=== PATIENT | female | born 1960 | race Two or more races ===

== ENCOUNTER 2024-09-08 16:34 | Inpatient (IN) | payer OTHER ==
[~2024-09-08] VITALS: Ht 167.6 cm; Wt 67.2 kg
[2024-09-08] MEDS: HYDROcodone-ACET 10/325MG TAB PO ONE (17:15)
--- NOTE | 2024-09-08 17:50 | DVH ---
EXAM: CT HEAD WITHOUT CONTRAST INDICATION: SANTOS TECHNIQUE: CT of the head without intravenous contrast. Radiation dose : Head: CT Dose: CTDI volume is 53 mGy. Dose-length product is 937 mGy*cm The dose indicators for CT are the volume computed tomography (CT) dose index (CTDIvol) and the dose length product (DLP), and are measured in units of mGy and mGy-cm, respectively. These indicators are not patient dose, but values generated from the CT scanner acquisition factors. The report includes radiation exposure data for exposures received during this examination. COMPARISON: None FINDINGS: There is no evidence of acute intracranial hemorrhage, extra-axial collection, mass effect, midline s hift, herniation or hydrocephalus. The ventricles, sulci and cisterns are age appropriate. The kendall-white differentiation is intact. Patchy periventricular and subcortical white matter hypoattenuation is nonspecific but may be related to small vessel ischemic disease. The visualized paranasal sinuses and mastoid air cells are clear. The surrounding soft tissues and osseous structures are unremarkable. IMPRESSION: 1. No acute intracranial abnormality. Radiation optimization: All CT scans at this facility use at least one of these dose optimization shi hniques: Automated exposure control mA and/or kV adjustment per patient size (includes targeted exams where dose is matched to clinical indication) or iterative reconstruction. HS:Y
--- NOTE | 2024-09-08 18:28 | ECG ---
[facility] Test Date: 2024-09-08 Test Time: 16:51:14 Pat Name: VICKIE EATON Department: ER Room: 0285T Gender: F Regional Hr Manager: ADÁN : 1960 Requested By: CARLINE PAULINO Order Number: [id number] Reading MD: Phil Bustos Measurements Intervals [place] Rate: 50 P: 83 ID: [id number] QRS: 110 QRSD: 102 T: 97 QT: 575 QTc: 525 Interpretive Statements Sinus rhythm Right atrial enlargement Right axis deviation Consider left ventricular hypertrophy Abnormal T, consider ischemia, lateral leads Prolonged QT interval Baseline wander in lead(s) V6 Electronically Signed On 09-10-2024 12:46:31 PST by Phil Bustos Please click the below link to view image of tracing.
[2024-09-08 18:56] LABS: Basophils # (auto) 0 10 ^3/uL (0-0.2); Eosinophils # (auto) 0 10 ^3/uL (0-0.8); Eosinophils % (auto) 0.9 % (0.0-7.0); Hematocrit 38.7 % (36.0-46.0); Hemoglobin 12.7 g/dL (12.2-16.2); Lymphocytes # (auto) 0.7 10 ^3/uL (0.4-5.4); Lymphocytes % (auto) 17.3 % (10.0-50.0); Mean Corpuscular Hemoglobin 29.2 pg (28.0-32.0); Mean Corpuscular Hgb Conc. 32.9 g/dL (32.0-36.0); Mean Corpuscular Volume 88.8 fL (80.0-100.0); Monocytes # (auto) 0.6 10 ^3/uL (0-1.3); Monocytes % (auto) 14.9 % (0.0-12.0); Neutrophils # (auto) 2.6 10 ^3/uL (1.6-8.6); Neutrophils % (auto) 65.9 % (37.0-80.0); Nucleated Red Blood Cells % 0.3 %; Platelet Count (auto) 160 10^3/uL (140-450); Red Blood Cells 4.36 10^6/uL (4.0-5.20); White Blood Cell 3.9 10^3/uL (4.4-10.8)
[2024-09-08 19:15] LABS: Alanine Aminotransferase 32 U/L (7-40); Albumin 4.4 g/dL (3.2-4.8); Anion Gap 9 (5-15); Aspartate Aminotransferase 34 U/L (13-40); Calcium 8.8 mg/dL (8.7-10.4); Glucose 88 mg/dL (74-106); Potassium 4.4 mmol/L (3.5-5.1); Sodium 137 mmol/L (136-145)
[2024-09-08 19:16] LABS: Bilirubin, Total 0.5 mg/dL (0.2-1.0)
[2024-09-08 19:18] LABS: Alkaline Phosphatase 144 U/L (46-116); Blood Urea Nitrogen 26 mg/dL (9-23); Carbon Dioxide 33 mmol/L (20-31); Chloride 95 mmol/L (98-107); Total Protein 8.3 g/dL (5.7-8.2)
[2024-09-08 19:35] VITALS: PULSE 49; O2SAT 96
--- NOTE | 2024-09-08 21:10 | ED.PDOC ---
History of Present Illness HPI Comments 64-year-old female who comes in with chief complaint of elevated blood pressure and generalized weakness. The patient gets dialyzed on Friday, Friday and Friday. The patient's heart rate has been somewhat decreased and so 911 was called but the patient was transported to our facility by her daughter. With symptoms of elevated blood pressure has been going on for approximately one week. She states that at approximately 3:00 a.m. she started to feel somewhat weak as well as a headache. She denies any fever or chills. Chief Complaint: Headache Time Seen by MD: 16:39 Reviewed Notes: Nurses Notes, Medications, Allergies (Allergies listed above) Allergies: Coded Allergies: Acetaminophen (Verified Allergy, Unknown, 09/08/24) Hydrocodone (Verified Allergy, Unknown, 09/08/24) Morphine (Verified Allergy, Unknown, 09/08/24) Uncoded Allergies: VICODEN (Allergy, Unknown, 09/08/24) Information Source: Patient, Relative (Child) Mode of Arrival: Ambulatory Severity: Moderate Timing: Days Duration: Since onset Prehospital treatment: None Associated signs and symptoms Complaining of the headache as well as generalized weakness and bradycardia Past Medical History PAST MEDICAL HISTORY: AFIB, ESRD, HTN, Thyroid Past Medical History (Other): Hepatitis-C Surgical History: Hysterectomy Surgical History (Other): Left arm dialysis fistula, gastric sleeve, cardiac valve surgery [employer] History: No Pertinent [employer]IVER History Family History Family History: Family hx of Cancer Social History Smoker: Non-Smoker Alcohol: Denies ETOH Use Drugs: Denies Drug Use Lives In: Home Constitutional: reports: weakness; denies: chills, diaphoresis, fatigue, fever, malaise, sweats, others EENTM: denies: blurred vision, double vision, ear bleeding, ear discharge, ear drainage, ear pain, ear ringing, eye pain, eye redness, hearing loss, mouth pain, mouth swelling, nasal discharge, nose bleeding, nose congestion, nose pain, photophobia, tearing, throat pain, throat swelling, voice changes, others Respiratory: denies: cough, hemoptysis, orthopnea, SOB at rest, shortness of breath, SOB with excertion, stridor, wheezing, others Cardiovascular: denies: chest pain, dizzy spells, diaphoresis, Dyspnea on exertion, edema, irregular heart beat, left arm pain, lightheadedness, palpitations, PND, syncope, others Gastrointestinal: denies: abdomen distended, abdominal pain, blood streaked bowels, constipated, diarrhea, dysphagia, difficulty swallowing, hematemesis, melena, nausea, poor appetite, poor fluid intake, rectal bleeding, rectal pain, vomiting, others Genitourinary: denies: abnormal vagina bleeding, burning, dyspareunia, dysuria, flank pain, frequency, hematuria, incontinence, pain, , vagina discharge, urgency, others Neurological: reports: headache; denies: dizziness, fainting, left sided numbness, left sided weakness, numbness, paresthesia, pre-existing deficit, right sided numbness, right sided weakness, seizure, speech problems, tingling, tremors, weakness, others Integumetry: denies: bruises, change in color, change in hair/nails, dryness, laceration, lesions, lumps, rash, wounds, others Allergic/Immunocompromised: denies: Difficulty Healing, Frequent Infections, Hives, Itching, others Hematologic/Lymphatic: denies: anemia, blood clots, easy bleeding, easy bruising, swollen glands, others Endocrine: denies: excessive hunger, excessive sweating, excessive thirst, excessive urination, flushing, intolerance to cold, intolerance to heat, unexplained weight gain, unexplained weight loss, others Psychiatric: denies: anxiety, bipolar disorder, depression, hopeless, panic disorder, schizophrenia, sleepless, suicidal, others Physical Exam General Appearance: Moderate Distress HEENT: Normal ENT Inspection, Pharynx Normal, TMs Normal Neck: Full Range of Motion, Non-Tender, Normal, Normal Inspection Respiratory: Chest Non-Tender, Lungs Clear, No Accessory Muscle Use, No Respiratory Distress, Normal Breath Sounds Cardiovascular: Bradycardia, No Edema, No JVD, No Murmur, No Gallop Breast Exam: Deferred Gastrointestinal: No Organomegaly, Non Tender, No Pulsatile Mass, Normal Bowel Sounds, Soft Genitalia: Deferred Pelvic: Deferred Rectal: Deferred Extremities: No calf tenderness, Normal capillary refill, No pedal edema, Other (Fistula to the left upper extremity) Musculoskeletal : Apperance: Normal Neurologic: Alert, learning solutions specialist II-XII nml as Tested, No Motor Deficits, Normal Affect, Normal Mood, No Sensory Deficits Cerebellar Function: Normal Reflexes: Normal Skin: Dry, Normal Color, Warm Lymphatic: No Adenopathy Was a procedure done? Was a procedure done?: No EKG EKG : Pulse Rate (adult): 50 [place]: Normal Cardiac Rhythm: SB Block: None Hypertrophy: GENESIS, LVH ST: Nonsp Differential Dx Considerations may include: Symptomatic bradycardia, electrolyte imbalance, dehydration X-Ray, Labs, Meds, VS Vital Signs Date Time Temp Pulse Resp B/P (MAP) Pulse Ox O2 Delivery O2 Flow Rate FiO2 09/08/24 19:57 47 19 09/08/24 19:55 48 22 145/61 (89) 96 09/08/24 19:01 45 18 96 Room Air 09/08/24 19:01 45 18 162/59 (93) 97 09/08/24 17:11 50 09/08/24 16:58 97.9 48 18 165/58 (93) 100 Lab Test 09/08/24 18:29 09/08/24 18:07 Range/Units Sodium Level 137 136-145 mmol/L Potassium Level 4.4 3.5-5.1 mmol/L Chloride Level 95 L 98-107 mmol/L Carbon Dioxide Level 33 H 20-31 mmol/L Anion Gap 9 5-15 Blood Urea Nitrogen 26 H 9-23 mg/dL Creatinine 6.50 H 0.550-1.02 mg/dL Glomerular Filtration Rate Calc 7 >90 mL/min BUN/Creatinine Ratio 4.0 L 10.0-20.0 Serum Glucose 88 74-106 mg/dL Calcium Level 8.8 8.7-10.4 mg/dL Total Bilirubin 0.5 0.2-1.0 mg/dL Aspartate Amino Transferase (AST) 34 13-40 U/L Alanine Aminotransferase (ALT) 32 7-40 U/L Alkaline Phosphatase 144 H 46-116 U/L Troponin I High Sensitivity 23 </=34 ng/L Total Protein 8.3 H 5.7-8.2 g/dL Albumin 4.4 3.2-4.8 g/dL White Blood Count 3.9 L 4.4-10.8 10^3/uL Red Blood Count 4.36 4.0-5.20 10^6/uL Hemoglobin 12.7 12.2-16.2 g/dL Hematocrit 38.7 36.0-46.0 % Mean Corpuscular Volume 88.8 80.0-100.0 fL Mean Corpuscular Hemoglobin 29.2 28.0-32.0 pg Mean Corpuscular Hemoglobin Concent 32.9 32.0-36.0 g/dL Red Cell Distribution Width 18.0 H 11.8-14.3 % Platelet Count 160 140-450 10^3/uL Mean Platelet Volume 10.4 6.9-10.8 fL Neutrophils (%) (Auto) 65.9 37.0-80.0 % Lymphocytes (%) (Auto) 17.3 10.0-50.0 % Monocytes (%) (Auto) 14.9 H 0.0-12.0 % Eosinophils (%) (Auto) 0.9 0.0-7.0 % Basophils (%) (Auto) 1.0 0.0-2.0 % Neutrophils # (Auto) 2.6 1.6-8.6 10 ^3/uL Lymphocytes # (Auto) 0.7 0.4-5.4 10 ^3/uL Monocytes # (Auto) 0.6 0-1.3 10 ^3/uL Eosinophils # (Auto) 0 0-0.8 10 ^3/uL Basophils # (Auto) 0 0-0.2 10 ^3/uL Nucleated Red Blood Cells 0.3 % The patient's chemistry panel shows a BUN of 26 and a creatinine of 6.5 The potassium is within limits The CBC is within limits. The patient's blood pressure is 145/61 The patient was somewhat bradycardic at 47 The patient is diagnosis symptomatic bradycardia with ESRD on dialysis CT scan of the head is negative At this time, the patient was being admitted to the hospitalist Images Reviewed?: Images reviewed and evaluated by me Time of 1ST Reevaluation: 21:06 Reevaluation 1ST: Unchanged Patient Education/Counseling: Diagnosis, Treatment, Prognosis Family Education/Counseling: No Family Present Departure 1 Departure Time of Disposition: 21:06 Impression: Primary Impression: Symptomatic bradycardia Additional Impression: ESRD on dialysis Disposition: 09 ADMITTED INPATIENT Admit to: [facility] Condition: Fair Critical Care Note Critical Care Time?: Yes (35 min-critical care time only) Stability Stability form required: Yes Unstable for transfer: ICU, CCU, PCU, KEVEN (Intensive VS monitoring), ED Physician Assesment (Clinical assesment) Heart Score Heart Score: Heart Score Response (Comments) Value History Moderate Suspicious 1 EKG Repolarization Disturb 1 Age >65 2 Risk Factors >3 or Hx ASHD 2 Troponin Normal limit 0 Total 6 CARLINE PAULINO MD Sep 08, 2024 21:10
[2024-09-08] MEDS ORDERED: NITROGLYCERIN 0.4 MG SL TAB SL PRN (22:00)
--- NOTE | 2024-09-08 23:43 | DVHHP2 ---
History of Present Illness Reason for Visit: GENERALIZED WEAKNESS History of Present Illness 64-year-old female presents for evaluation of generalized weakness. Patient reports a one-week history of elevated blood pressure with intermittent low heart rate. She states that today the heart rate was consistently in the 40s. Today she developed a headache and generalized weakness so she presented for further evaluation. Past Medical History End-stage renal disease, hypertension, thyroid, hepatitis-C and atrial fibrillation Past Surgical History Cardiac valve replacement, gastric sleeve, AV fistula Family History Noncontributory Smoke: No ALCOHOL: none Drugs: None Lives: with Family Review of Systems Review of Systems Review of systems are currently negative otherwise addressed in HPI. Allergies: Coded Allergies: Acetaminophen (Verified Allergy, Unknown, 09/08/24) Hydrocodone (Verified Allergy, Unknown, 09/08/24) Morphine (Verified Allergy, Unknown, 09/08/24) Uncoded Allergies: VICODEN (Allergy, Unknown, 09/08/24) Medications Current Medications Medications Dose Ordered Sig/Cornelio Route Start Time Stop Time Status Last Admin Dose Admin Nitroglycerin 0.4 mg Q5MINP PRN SL 09/08/24 22:00 Ondansetron HCl 4 mg Q4HP PRN IV 09/08/24 22:30 Acetaminophen 650 mg Q6HP PRN PO 09/08/24 22:30 Exam Vital Signs Vital Signs Date Time Temp Pulse Resp B/P (MAP) Pulse Ox O2 Delivery O2 Flow Rate FiO2 09/08/24 21:10 50 09/08/24 19:57 19 09/08/24 19:55 145/61 (89) 96 09/08/24 19:35 Room Air* 0 21 09/08/24 16:58 97.9 Exam Gen: 64-year-old female in mild distress Skin: Warm, dry, normal color and texture, no rash. HEENT: Normocephalic atraumatic, mucous membranes moist and pink. Neck: Cervical and supraclavicular nodes normal without enlargement, trachea is midline, thyroid gland is normal without masses. Pulmonary: Clear to auscultation and percussion bilaterally. Cardiac: Sinus bradycardia Abdomen: Soft, nontender, nondistended, bowel sounds present all 4 quadrants, no guarding, no rigidity, no organomegaly. Extremities: No cyanosis, clubbing, no edema Neuro: Cranial nerves II through XII grossly intact, normal affect and speech, no focal motor deficits. Labs/Xrays ORDERING PHYSICIAN: CARLINE PAULINO MD PROCEDURE(s): HWOCT - HEAD WITHOUT CONTRAST REASON: SANTOS ORDER NUMBER(s): [id number], ACCESSION NUMBER(s): [id number] EXAM: CT HEAD WITHOUT CONTRAST INDICATION: SANTOS TECHNIQUE: CT of the head without intravenous contrast. Radiation dose : Head: CT Dose: CTDI volume is 53 mGy. Dose-length product is 937 mGy*cm The dose indicators for CT are the volume computed tomography (CT) dose index (CTDIvol) and the dose length product (DLP), and are measured in units of mGy and mGy-cm, respectively. These indicators are not patient dose, but values generated from the CT scanner acquisition factors. The report includes radiation exposure data for exposures received during this examination. COMPARISON: None FINDINGS: There is no evidence of acute intracranial hemorrhage, extra-axial collection, mass effect, midline shift, herniation or hydrocephalus. The ventricles, sulci and cisterns are age appropriate. The kendall-white differentiation is intact. Patchy periventricular and subcortical white matter hypoattenuation is nonspecific but may be related to small vessel ischemic disease. The visualized paranasal sinuses and mastoid air cells are clear. The surrounding soft tissues and osseous structures are unremarkable. IMPRESSION: 1. No acute intracranial abnormality. Radiation optimization: All CT scans at this facility use at least one of these dose optimization techniques: Automated exposure control mA and/or kV adjustment per patient size (includes targeted exams where dose is matched to clinical indication) or iterative reconstruction. HS:Y ATED BY: HASEEB COLBERT MD DICTATED DATE/TIME: 09/08/24 1747 Labs Test 09/08/24 18:29 09/08/24 18:07 Range/Units Sodium Level 137 136-145 mmol/L Potassium Level 4.4 3.5-5.1 mmol/L Chloride Level 95 L 98-107 mmol/L Carbon Dioxide Level 33 H 20-31 mmol/L Anion Gap 9 5-15 Blood Urea Nitrogen 26 H 9-23 mg/dL Creatinine 6.50 H 0.550-1.02 mg/dL Glomerular Filtration Rate Calc 7 >90 mL/min BUN/Creatinine Ratio 4.0 L 10.0-20.0 Serum Glucose 88 74-106 mg/dL Calcium Level 8.8 8.7-10.4 mg/dL Magnesium Level 2.0 1.6-2.6 mg/dL Total Bilirubin 0.5 0.2-1.0 mg/dL Aspartate Amino Transferase (AST) 34 13-40 U/L Alanine Aminotransferase (ALT) 32 7-40 U/L Alkaline Phosphatase 144 H 46-116 U/L Troponin I High Sensitivity 23 </=34 ng/L Total Protein 8.3 H 5.7-8.2 g/dL Albumin 4.4 3.2-4.8 g/dL Thyroid Stimulating Hormone (TSH) 2.08 0.55-4.78 uIU/mL White Blood Count 3.9 L 4.4-10.8 10^3/uL Red Blood Count 4.36 4.0-5.20 10^6/uL Hemoglobin 12.7 12.2-16.2 g/dL Hematocrit 38.7 36.0-46.0 % Mean Corpuscular Volume 88.8 80.0-100.0 fL Mean Corpuscular Hemoglobin 29.2 28.0-32.0 pg Mean Corpuscular Hemoglobin Concent 32.9 32.0-36.0 g/dL Red Cell Distribution Width 18.0 H 11.8-14.3 % Platelet Count 160 140-450 10^3/uL Mean Platelet Volume 10.4 6.9-10.8 fL Neutrophils (%) (Auto) 65.9 37.0-80.0 % Lymphocytes (%) (Auto) 17.3 10.0-50.0 % Monocytes (%) (Auto) 14.9 H 0.0-12.0 % Eosinophils (%) (Auto) 0.9 0.0-7.0 % Basophils (%) (Auto) 1.0 0.0-2.0 % Neutrophils # (Auto) 2.6 1.6-8.6 10 ^3/uL Lymphocytes # (Auto) 0.7 0.4-5.4 10 ^3/uL Monocytes # (Auto) 0.6 0-1.3 10 ^3/uL Eosinophils # (Auto) 0 0-0.8 10 ^3/uL Basophils # (Auto) 0 0-0.2 10 ^3/uL Nucleated Red Blood Cells 0.3 % Assessment/Plan Assessment/Plan Assessment Symptomatic bradycardia End-stage renal disease, dialysis dependent Hypertension Atrial fibrillation Plan Admit the patient to telemetry to the hospitalist Cardiology consultation Echocardiogram pending Hold amiodarone Resume home medications Continue treatment per orders. Plan discussed with: Patient My Orders Orders - REGINA CUNNINGHAM Procedure Category Date Status Time Admit ADMIT 09/08/24 Transmitted 21:49 Nitroglycerin [facility] 09/08/24 In Process Sublingual (Ntrostat 22:00 Stat Ekg For Chest [facility] 09/08/24 In Process Pain 21:49 Notify Md Of Changes [facility] 09/08/24 In Process From Base 21:49 Tablet Coater For [facility] 09/08/24 In Process 24 Hours 21:49 Emergency Dysrhythmia [facility] 09/08/24 In Process Protocol 21:49 Rhythm Strips Once [facility] 09/08/24 In Process Every Shift 21:49 Oxygen By Nasal RT 09/08/24 Transmitted Cannula 21:49 * Cardiology Consult CONS 09/08/24 Transmitted 22:21 Basic Metabolic Panel LAB 09/09/24 Verified 04:00 Renal DIET 09/09/24 Transmitted Standard(2gna,3gk,Lopho) Breakfast Ondansetron Hcl [facility] 09/08/24 In Process (Zofran) 22:30 Condition: Fair [facility] 09/08/24 In Process 22:21 Acetaminophen Tablet [facility] 09/08/24 In Process (Tylenol Tablet) 22:30 Bedrest With Bathroom [facility] 09/08/24 In Process Privileg 22:21 Echo 2d Mode Cardiac US 09/08/24 Logged DOP 22:21 Date of Service: Sep 08, 2024 Billing Provider: REGINA CUNNINGHAM Common Visit Codes: [id number] INP/OBS CARE (HIGH) REGINA CUNNINGHAM Sep 08, 2024 23:43
[2024-09-09] VITALS (10 sets, daily range): BP systolic 137–161; BP diastolic 57–87; PULSE 48–74; RESP 16–20; TEMP 97.8–98.3; O2SAT 91–100
[2024-09-09] MEDS: ACETAMINOPHEN 325 MG TAB PO PRN (03:04)
[2024-09-09] MEDS: hydrALAZINE HCL 20 MG/ML VL IV PRN (06:29)
[2024-09-09 08:11] LABS: Sodium 136 mmol/L (136-145)
[2024-09-09 08:12] LABS: Anion Gap 10 (5-15); Calcium 8.8 mg/dL (8.7-10.4)
[2024-09-09 08:16] LABS: Glucose 80 mg/dL (74-106)
[2024-09-09 08:17] LABS: BUN/Creatinine Ratio 3.7 (10.0-20.0)
[2024-09-09 08:21] LABS: Blood Urea Nitrogen 28 mg/dL (9-23); Carbon Dioxide 32 mmol/L (20-31); Chloride 94 mmol/L (98-107)
[2024-09-09] MEDS: amLODIPine BESYLATE 5 MG TAB PO SCH (08:52)
[2024-09-09] MEDS: APIXABAN 5 MG TAB PO SCH ×2 (08:52→20:49)
--- NOTE | 2024-09-09 10:17 | DVHINCON2 ---
Date Seen: Sep 09, 2024 Referring Physician MAX Gerard Reason for Consultation Bradycardia History of Present Illness This is a 64-year-old female patient who presents to the emergency room with chief complaint of generalized weakness, headache, and elevated blood pressure. The patient reports that she has been having issues with controlling her blood pressure at home and also noticed that she had a low heart rate for approximately one week. She comes to the emergency room for further evaluation. Cardiology has now been consulted for bradycardia. Initial twelve lead electrocardiogram reveals sinus bradycardia with prolonged QT interval without any AV blocks or pauses noted. The patient denies any symptoms of bradycardia such as dizziness or fatigue. Significant past medical history includes severe aortic stenosis status post bioprosthetic aortic valve replacement, paroxysmal atrial fibrillation (on Eliquis and Amiodarone), hypertension, hyperlipidemia, hepatitis-C, and anxiety. The patient reports that she follows up with a botany laboratory assistant within the [facility] network. Past Medical History Past medical history reviewed. No other significant than mentioned above. Past Surgical History Bioprosthetic aortic valve replacement on July 29, 2023 Gastric sleeve Hysterectomy Family History: Patient reports no known family medical history. Family History Family history reviewed. Social History Patient has a five pack-year history, quit smoking approximately five years ago Patient denies any illicit drug use Patient denies any alcohol use Allergies: Coded Allergies: Morphine (Verified Allergy, Unknown, 09/08/24) Home Meds Reported Medications Amiodarone Hcl (Amiodarone Hcl) 200 Mg Tab, 200 MG PO Q12HR for 30 Days 09/09/24 Apixaban Base (ELIQUIS) 2.5 Mg Tab, 2.5 MG PO BID, TAB 09/09/24 Atorvastatin Calcium (ATORVASTATIN CALCIUM) 20 Mg Tab, 1 TAB PO DAILY, #30 TAB 5 Refills 09/09/24 Amlodipine Besylate (Amlodipine Besylate) 5 Mg Tab, 5 MG PO BID for 30 Days, MG 09/09/24 Home Meds Home medications reviewed. Current Medications Current Medications Medications (Trade) Dose Ordered Sig/Cornelio Route PRN Reason Start Time Stop Time Status Last Admin Nitroglycerin (Ntrostat Sublingual) 0.4 mg Q5MINP PRN SL FOR CHEST PAIN 09/08/24 22:00 Ondansetron HCl (Zofran) 4 mg Q4HP PRN IV NAUSEA / VOMITING 09/08/24 22:30 Acetaminophen (Tylenol Tablet) 650 mg Q6HP PRN PO PAIN SCALE 1-3 OR TEMP>100.4 09/08/24 22:30 09/09/24 03:04 Amlodipine Besylate (Norvasc Tablet) 5 mg DAILY PO 09/09/24 10:00 09/09/24 08:52 Hydralazine HCl (Apresoline Injection) 10 mg Q6HP PRN IV SBP>150 09/08/24 23:45 09/09/24 06:29 Apixaban (Eliquis) 5 mg BID PO 09/09/24 10:00 09/09/24 08:52 Atorvastatin Calcium (Lipitor) 20 mg HS PO 09/09/24 22:00 Review of Systems Constitutional: Generalized weakness Ears, Nose, & Throat: No symptom reported Eyes: No symptom reported Neurological: Headache Pulmonary/Respiratory: No symptoms reported Cardiovascular: No symptom reported Gastrointestinal: No symptom reported Genitourinary: No symptom reported Musculoskeletal: No symptom reported Skin: No symptom reported Psychiatric: No symptom reported Endocrine: No symptom reported Hematologic/Lymphatic: No symptom reported Vital Signs Vital Signs Date Time Temp Pulse Resp B/P (MAP) Pulse Ox O2 Delivery O2 Flow Rate FiO2 09/09/24 09:00 97.8 55 18 150/57 (88) 91 97.8 09/09/24 08:00 Room Air* 0 21 Physical Exam General Appearance: Cooperative. Well-developed. Well-nourished. No acute distress. Pulmonary/Respiratory: Clear, bilateral breaths sounds. Cardiovascular/Chest: Regular rate and rhythm. Peripheral Pulses: 2+ Radial (R). 2+ Radial (L). 2+ Pedal (R). 2+ Pedal (L) Abdominal Exam: Normal bowel sounds. Ankle Exam: Negative ankle edema Lower extremities: Negative lower extremity edema Neuro/Mental Status: A/OX4, coherent. Thoughts/Psych: Normal thought pattern. Appropriate mood and affect. Good judgment and insight. Appearance: No acute distress. Skin Exam: Normal inspection. Normal color. Warm and dry. Labs/Diagnostic Data Labs Test 09/09/24 07:22 09/08/24 18:29 09/08/24 18:07 Range/Units Sodium Level 136 136-145 mmol/L Potassium Level 4.0 3.5-5.1 mmol/L Chloride Level 94 L 98-107 mmol/L Carbon Dioxide Level 32 H 20-31 mmol/L Anion Gap 10 5-15 Blood Urea Nitrogen 28 H 9-23 mg/dL Creatinine 7.53 H 0.550-1.02 mg/dL Glomerular Filtration Rate Calc 6 >90 mL/min BUN/Creatinine Ratio 3.7 L 10.0-20.0 Serum Glucose 80 74-106 mg/dL Calcium Level 8.8 8.7-10.4 mg/dL Magnesium Level 2.0 1.6-2.6 mg/dL Total Bilirubin 0.5 0.2-1.0 mg/dL Aspartate Amino Transferase (AST) 34 13-40 U/L Alanine Aminotransferase (ALT) 32 7-40 U/L Alkaline Phosphatase 144 H 46-116 U/L Troponin I High Sensitivity 23 </=34 ng/L Total Protein 8.3 H 5.7-8.2 g/dL Albumin 4.4 3.2-4.8 g/dL Thyroid Stimulating Hormone (TSH) 2.08 0.55-4.78 uIU/mL White Blood Count 3.9 L 4.4-10.8 10^3/uL Red Blood Count 4.36 4.0-5.20 10^6/uL Hemoglobin 12.7 12.2-16.2 g/dL Hematocrit 38.7 36.0-46.0 % Mean Corpuscular Volume 88.8 80.0-100.0 fL Mean Corpuscular Hemoglobin 29.2 28.0-32.0 pg Mean Corpuscular Hemoglobin Concent 32.9 32.0-36.0 g/dL Red Cell Distribution Width 18.0 H 11.8-14.3 % Platelet Count 160 140-450 10^3/uL Mean Platelet Volume 10.4 6.9-10.8 fL Neutrophils (%) (Auto) 65.9 37.0-80.0 % Lymphocytes (%) (Auto) 17.3 10.0-50.0 % Monocytes (%) (Auto) 14.9 H 0.0-12.0 % Eosinophils (%) (Auto) 0.9 0.0-7.0 % Basophils (%) (Auto) 1.0 0.0-2.0 % Neutrophils # (Auto) 2.6 1.6-8.6 10 ^3/uL Lymphocytes # (Auto) 0.7 0.4-5.4 10 ^3/uL Monocytes # (Auto) 0.6 0-1.3 10 ^3/uL Eosinophils # (Auto) 0 0-0.8 10 ^3/uL Basophils # (Auto) 0 0-0.2 10 ^3/uL Nucleated Red Blood Cells 0.3 % Assessment Asymptomatic bradycardia Severe aortic stenosis status post bioprosthetic aortic valve replacement Paroxysmal atrial fibrillation (on Eliquis and amiodarone) Mitral valve stenosis, moderate to severe degree Tricuspid valve regurgitation, mild to moderate degree Hypertension Hyperlipidemia Thyroid disease Hepatitis-C Plan/Recommendation We will continue with following plan/recommendations (Dr. Richards): * Echocardiogram reveals EF 55%, RVSP 51 mmHg * Avoid AV nicholas blocking agents * Switch amlodipine to nifedipine for tighter BP control * Up-titrate as tolerated * [id number] VASc score: 3 points, HAS-BLED score: 2 points * Hold beta theresa given bradycardia * NOAC therapy, Eliquis * Hold amiodarone given bradycardia * Cardiac surveillance: Notify cardiology team for any arrhythmias, pauses, or AV blocks * Consider outpatient event monitor Patient seen and examined at bedside with . Patient with asymptomatic bradycardia. No significant AV blocks or pauses seen on monitoring and evaluation advisor. Thank you for allowing us to care for this patient. Please call with any questions or concerns. Critical care time spent: 40 minutes This medical document was created using an electronic medical record system with voice recognition software and computerized dictation system. Although this document has been carefully reviewed, there might still be some phonetic and typographical errors. Occasional wrong-word or ``sound-alike substitutions may have occurred due to the inherent limitations of voice recognition software. These areas are purely typographical due to imperfections of the software pr ograms and do not reflect any compromise in the patient's medical care. Please read the chart carefully and recognize, using context, where these substitutions have occurred. Plan discussed with: Patient Date of Service: Sep 09, 2024 Billing Provider: LITTLE RICHARDS MD Cardiology Common Codes: [id number] INP/OBS CARE (High) Cardiology Consultation Codes: [id number] CONSULT <45MIN ARINANA SY Sep 09, 2024 10:17
--- NOTE | 2024-09-09 14:00 | DVHSR ---
APPROVED REPORT EXAM: Two-dimensional and M-mode echocardiogram with Doppler and color Doppler. Blood Pressure: 145/87 mmHg INDICATION Bradycardia Surgery/Intervention Valve Replacement: Type: Mitral RISK FACTORS Height: 66, Weight: 143 DIMENSIONS LVDd4.9 (3.8-5.7cm)LA (2D)4.6 (1.9-4.0cm)Aortic Root2.8 (2.0-3.7cm) LVDs3.1 (2.5-4.0cm)LA (MM) (1.9-4.0cm)Aortic Cusp Exc1.5 (1.5-2.0cm) EF (%) 65.0 (55-70%)Rt. Atrium4.0 (1.9-4.0cm)Asc. Aorta3.1 cm Mitral Valve MitralMitral Stenosis E wavem/sMV Mean GR.5mmHg A wavem/sMV Peak GR.22mmHg E/A ratio0.02D MVAcm2 Aortic Valve Aortic ValveAortic Stenosis V11.40m/Sydnie Mean GR.9mmHg V22.16m/Sydnie Peak GR.19mmHg LVOT Diameter2.0 (1.8-2.4cm)Doppler AVA2.04cm2 Pulmonic Valve V21.06m/s Tricuspid Valve TR Velocity2.82m/s [id number] Conclusion Normal left ventricular size and dimension. Normal left ventricular systolic function estimated ejec tion fraction 55%. There is a grade1 diastolic dysfunction. Normal right ventricular size and dimension. Mildly reduced right ventricular systolic function. Mo derately elevated right ventricular systolic pressure at 51 mm of mercury. Moderately dilated right and left atria. There is mild aortic valve calcification with aortic valve sclerosis. There is severe mitral annular calcification with moderate to severe mitral valve stenosis. Peak gra dient was measured at 22 mm of mercury with a mean gradient of5 mm of mercury. I believe the valve h as high gradient but probably due to poor Doppler signal and slow heart rate we could not assess the gradient of the valve area of properly. There is [id number] tricuspid valve regurgitation. The pulmonary valve is difficult to visualize. No significant pericardial effusion. New
--- NOTE | 2024-09-09 14:34 | DVHPN2 ---
Progress Note Date Seen: Sep 09, 2024 Medical Necessity Reason Pt with a Central, PICC or Fol: No Subjective Patient reports: No new complaints Review of Systems: HEENT:Normal, CVS:Normal, RESPIRATORY:Normal, GI:Normal, :Normal, MSK:Normal, NEURO:Normal Objective vital signs Vital Sign Date Time Temp Pulse Resp B/P (MAP) Pulse Ox O2 Delivery O2 Flow Rate FiO2 09/09/24 09:00 97.8 55 18 150/57 (88) 91 97.8 09/09/24 08:00 Room Air* 0 21 Total Intake and Output 09/08/24 09/08/24 09/09/24 15:00 23:00 07:00 Intake Total 100 ml Output Total 0 ml Balance 100 ml medications Current Medications Medications Dose Ordered Sig/Cornelio Route Start Time Stop Time Status Last Admin Dose Admin Nitroglycerin 0.4 mg Q5MINP PRN SL 09/08/24 22:00 Ondansetron HCl 4 mg Q4HP PRN IV 09/08/24 22:30 Acetaminophen 650 mg Q6HP PRN PO 09/08/24 22:30 09/09/24 11:09 650 MG Amlodipine Besylate 5 mg DAILY PO 09/09/24 10:00 09/09/24 08:52 5 MG Hydralazine HCl 10 mg Q6HP PRN IV 09/08/24 23:45 09/09/24 06:29 10 MG Apixaban 5 mg BID PO 09/09/24 10:00 09/09/24 08:52 5 MG Atorvastatin Calcium 20 mg HS PO 09/09/24 22:00 Examination: GENERAL:Normal, HEENT:Normal, NECK:Normal, LUNGS:Normal, CVS:Normal, ABDOMEN:Normal, MSK:Normal, SKIN:Normal, NEURO:Normal, :Normal laboratory and microbiology Laboratory Tests 09/09/24 07:22 09/08/24 18:07 Test 09/09/24 07:22 Range/Units Serum Glucose 80 74-106 mg/dL Microbiology Date/Time Source Procedure Growth Status 09/09/24 06:25 Nose MRSA Screen - Final Complete Problem List/Assessment/Plan Problem List/Assessment/Plan #1 bradycardia ?sick sinus: cardio eval #2 htn ? urgency: cont meds #3 esrd: on dialysis, dw dr Cortes #4 s/p valve replacement #5 s/p gastric sleeve #6 ?hypothyroidism advance care planning- full code- time spent 19 mins Plan discussed with: Patient Date of Service: Sep 09, 2024 Billing Provider: REGINA ST MD Common Visit Codes: [id number] INP/OBS CARE(HIGH) Secondary Visit Codes: [id number] CARE PLAN [address] MD Sep 09, 2024 14:34
[2024-09-09] MEDS ORDERED: ATOR20TA50 PO (14:41)
[2024-09-09] MEDS ORDERED: AMIO200T33 PO (14:41)
[2024-09-09] MEDS ORDERED: APIX2.5T PO (14:41)
[2024-09-09] MEDS ORDERED: AMLO1TAB22 PO (14:41)
--- NOTE | 2024-09-09 15:50 | DVHINCON2 ---
Date of service: Sep 09, [address] Ren Reason for Consultation End-stage kidney disease History of Present Illness This is a 64-year-old female with history of end-stage kidney disease on hemodialysis, coronary artery disease status post CABG, atrial fibrillation, hypertension, secondary hyperparathyroidism of renal origin sent to the emergency room by her doctor at [facility] because of bradycardia. As per the history obtained from the patient she has been on amiodarone since her CABG last year. She was on 200 mg daily the dose of which was decreased to 100 mg daily about a month ago. When she was evaluated by her doctor today it was noticed that her heart rate was in the 40s and hence referred to the ER. Nephrology consulted for continuation of dialysis. Last dialysis was on Friday. Past Medical History As stated above Past Surgical History Status post CABG Family History: Patient reports no known family medical history. Social History No active history of smoking, alcohol or drug abuse Allergies: Coded Allergies: Morphine (Verified Allergy, Unknown, 09/08/24) Home Meds Reported Medications Amiodarone Hcl (Amiodarone Hcl) 200 Mg Tab, 200 MG PO Q12HR for 30 Days 09/09/24 Apixaban Base (ELIQUIS) 2.5 Mg Tab, 2.5 MG PO BID, TAB 09/09/24 Atorvastatin Calcium (ATORVASTATIN CALCIUM) 20 Mg Tab, 1 TAB PO DAILY, #30 TAB 5 Refills 09/09/24 Amlodipine Besylate (Amlodipine Besylate) 5 Mg Tab, 5 MG PO BID for 30 Days, MG 09/09/24 Current Medications Current Medications Medications (Trade) Dose Ordered Sig/Cornelio Route PRN Reason Start Time Stop Time Status Last Admin Nitroglycerin (Ntrostat Sublingual) 0.4 mg Q5MINP PRN SL FOR CHEST PAIN 09/08/24 22:00 Ondansetron HCl (Zofran) 4 mg Q4HP PRN IV NAUSEA / VOMITING 09/08/24 22:30 Acetaminophen (Tylenol Tablet) 650 mg Q6HP PRN PO PAIN SCALE 1-3 OR TEMP>100.4 09/08/24 22:30 09/09/24 11:09 Amlodipine Besylate (Norvasc Tablet) 5 mg DAILY PO 09/09/24 10:00 09/09/24 14:31 DC 09/09/24 08:52 Hydralazine HCl (Apresoline Injection) 10 mg Q6HP PRN IV SBP>150 09/08/24 23:45 09/09/24 06:29 Apixaban (Eliquis) 5 mg BID PO 09/09/24 10:00 09/09/24 14:31 DC 09/09/24 08:52 Atorvastatin Calcium (Lipitor) 20 mg HS PO 09/09/24 22:00 Amlodipine Besylate (Norvasc Tablet) 10 mg DAILY PO 09/10/24 10:00 Apixaban (Eliquis) 2.5 mg BID PO 09/09/24 22:00 Review of Systems 12 point review of system negative except as stated in the HPI Vital Signs Vital Signs Date Time Temp Pulse Resp B/P (MAP) Pulse Ox O2 Delivery O2 Flow Rate FiO2 09/09/24 09:00 97.8 55 18 150/57 (88) 91 97.8 09/09/24 08:00 Room Air* 0 21 Physical Exam Awake alert oriented x3 HEENT: Normocephalic, no JVD Lungs: Bilateral good air entry CVS: S1, S2 bradycardic Abdomen: Soft, bowel sounds present STRAP FOLDING MACHINE OPERATOR: No focal deficits Extremities: No edema Labs/Diagnostic Data Labs Test 09/09/24 07:22 09/08/24 18:29 09/08/24 18:07 Range/Units Sodium Level 136 136-145 mmol/L Potassium Level 4.0 3.5-5.1 mmol/L Chloride Level 94 L 98-107 mmol/L Carbon Dioxide Level 32 H 20-31 mmol/L Anion Gap 10 5-15 Blood Urea Nitrogen 28 H 9-23 mg/dL Creatinine 7.53 H 0.550-1.02 mg/dL Glomerular Filtration Rate Calc 6 >90 mL/min BUN/Creatinine Ratio 3.7 L 10.0-20.0 Serum Glucose 80 74-106 mg/dL Calcium Level 8.8 8.7-10.4 mg/dL Magnesium Level 2.0 1.6-2.6 mg/dL Total Bilirubin 0.5 0.2-1.0 mg/dL Aspartate Amino Transferase (AST) 34 13-40 U/L Alanine Aminotransferase (ALT) 32 7-40 U/L Alkaline Phosphatase 144 H 46-116 U/L Troponin I High Sensitivity 23 </=34 ng/L Total Protein 8.3 H 5.7-8.2 g/dL Albumin 4.4 3.2-4.8 g/dL Thyroid Stimulating Hormone (TSH) 2.08 0.55-4.78 uIU/mL White Blood Count 3.9 L 4.4-10.8 10^3/uL Red Blood Count 4.36 4.0-5.20 10^6/uL Hemoglobin 12.7 12.2-16.2 g/dL Hematocrit 38.7 36.0-46.0 % Mean Corpuscular Volume 88.8 80.0-100.0 fL Mean Corpuscular Hemoglobin 29.2 28.0-32.0 pg Mean Corpuscular Hemoglobin Concent 32.9 32.0-36.0 g/dL Red Cell Distribution Width 18.0 H 11.8-14.3 % Platelet Count 160 140-450 10^3/uL Mean Platelet Volume 10.4 6.9-10.8 fL Neutrophils (%) (Auto) 65.9 37.0-80.0 % Lymphocytes (%) (Auto) 17.3 10.0-50.0 % Monocytes (%) (Auto) 14.9 H 0.0-12.0 % Eosinophils (%) (Auto) 0.9 0.0-7.0 % Basophils (%) (Auto) 1.0 0.0-2.0 % Neutrophils # (Auto) 2.6 1.6-8.6 10 ^3/uL Lymphocytes # (Auto) 0.7 0.4-5.4 10 ^3/uL Monocytes # (Auto) 0.6 0-1.3 10 ^3/uL Eosinophils # (Auto) 0 0-0.8 10 ^3/uL Basophils # (Auto) 0 0-0.2 10 ^3/uL Nucleated Red Blood Cells 0.3 % Microbiology Date/Time Source Procedure Growth Status 09/09/24 06:25 Nose MRSA Screen - Final Complete Assessment End-stage kidney disease on hemodialysis Symptomatic bradycardia History of coronary artery disease status post CABG hypertension Hyperphosphatemia Plan/Recommendation Amiodarone has been put on hold. We will continue to monitor heart rate. We will review home meds. On amlodipine currently. Hemodialysis tomorrow. Plan discussed with: Patient SHAYY LIN MD Sep 09, 2024 15:50
[2024-09-09] MEDS: ONDANSETRON HCL 4 MG/2 ML VIAL IV PRN (20:49)
[2024-09-09] MEDS: ATORVASTATIN 20 MG TAB PO SCH (20:50)
[2024-09-10] VITALS (7 sets, daily range): BP systolic 146–189; BP diastolic 54–85; PULSE 44–72; RESP 13–18; TEMP 97.5–98; O2SAT 95–100
[2024-09-10 07:25] LABS: Anion Gap 13 (5-15); Potassium 4.2 mmol/L (3.5-5.1); Sodium 138 mmol/L (136-145)
[2024-09-10 07:27] LABS: Calcium 8.7 mg/dL (8.7-10.4); Carbon Dioxide 32 mmol/L (20-31); Chloride 93 mmol/L (98-107)
[2024-09-10 07:31] LABS: BUN/Creatinine Ratio 4.2 (10.0-20.0)
[2024-09-10 07:32] LABS: Blood Urea Nitrogen 38 mg/dL (9-23); Glucose 72 mg/dL (74-106)
[2024-09-10 07:44] LABS: Triglycerides 90 mg/dL (< 150)
[2024-09-10 07:45] LABS: LDL Cholesterol 78 mg/dL (< 100)
[2024-09-10 07:46] LABS: Cholesterol 141 mg/dL (< 200)
[2024-09-10 07:59] LABS: HDL Cholesterol 39 mg/dL (40-59)
[2024-09-10] MEDS ORDERED: amLODIPine BESYLATE 5 MG TAB PO SCH (10:00)
[2024-09-10] MEDS: NIFEdipine ER 30 MG TAB PO SCH (12:40)
--- NOTE | 2024-09-10 12:41 | DVHPN2 ---
Subjective better Reviewed: Care Plan, H&P, Labs, Medications, Previous Orders, Radiology, Other ( cosmetic sales consultant) Changes from previous H/P or p: No Changes Objective Vitals Vital Signs Date Time Temp Pulse Resp B/P (MAP) Pulse Ox O2 Delivery O2 Flow Rate FiO2 09/10/24 09:00 97.7 54 18 165/85 (111) 98 97.7 09/09/24 20:10 Room Air* 0 21 Intake/Output Intake and Output 09/10/24 07:00 Intake Total 2260 ml Output Total 0 ml Balance 2260 ml Intake Oral 2260 ml Output Urine Total 0 ml # Bowel Movements 9 General Appearance: Alert, Oriented X3, Cooperative, No acute distress HEENT: Atraumatic Lungs: Clear to auscultation Cardiovascular: Other (Bradycardia) Abdomen: Normal bowel sounds Medications Current Medications Medications Dose Ordered Sig/Cornelio Route Start Time Stop Time Status Last Admin Dose Admin Nitroglycerin 0.4 mg Q5MINP PRN SL 09/08/24 22:00 Ondansetron HCl 4 mg Q4HP PRN IV 09/08/24 22:30 09/09/24 20:49 4 MG Acetaminophen 650 mg Q6HP PRN PO 09/08/24 22:30 09/09/24 11:09 650 MG Hydralazine HCl 10 mg Q6HP PRN IV 09/08/24 23:45 09/09/24 22:40 10 MG Atorvastatin Calcium 20 mg HS PO 09/09/24 22:00 09/09/24 20:50 20 MG Apixaban 2.5 mg BID PO 09/09/24 22:00 09/10/24 11:49 2.5 MG Nifedipine 60 mg DAILY PO 09/10/24 10:00 Laboratory Results Laboratory Tests 09/08/24 18:07 09/10/24 05:18 Chemistry Test 09/10/24 05:18 Calcium Level 8.7 mg/dL (8.7-10.4) Lipid panel Test 09/10/24 05:18 Cholesterol Level 141 mg/dL (< 200) HDL Cholesterol 39 mg/dL (40-59) L Triglycerides Level 90 mg/dL (< 150) HgA1c, TSH Test 09/10/24 05:18 Hemoglobin A1c 4.9 % A1C (<5.7) Microbiology Microbiology Date/Time Source Procedure Growth Status 09/09/24 06:25 Nose MRSA Screen - Final Complete Assessment/Plan Assessment/Plan Bradycardia Paroxysmal AFib Hypertension History of aortic valve replacement [id number] mitral stenosis End-stage renal disease on hemodialysis Status post gastric sleeve History of hep C Plan: Continue current plan of care. Holding metoprolol and amiodarone as per Cardiology. Unstable for transfer today possible home tomorrow if stable Plan discussed with: Patient Date of Service: Sep 10, 2024 Billing Provider: LAURA GIBBONS MD Common Visit Codes: [id number] INP/OBS CARE(HIGH) LAURA GIBBONS MD Sep 10, 2024 12:41
--- NOTE | 2024-09-10 15:12 | DVHPN2 ---
Consult Progress Note Subjective Other Systems: Patient remains in sinus bradycardia on shelter monitor. No pauses or AV blocks noted. Objective vital signs Vital Sign Date Time Temp Pulse Resp B/P (MAP) Pulse Ox O2 Delivery O2 Flow Rate FiO2 09/10/24 13:00 97.8 51 18 160/54 (89) 100 97.8 09/10/24 07:45 Room Air* 0 21 Total Intake and Output 09/09/24 09/09/24 09/10/24 15:00 23:00 07:00 Intake Total 1540 ml 720 ml Output Total 0 ml Balance 1540 ml 720 ml medications Current Medications Medications Dose Ordered Sig/Cornelio Route Start Time Stop Time Status Last Admin Dose Admin Nitroglycerin 0.4 mg Q5MINP PRN SL 09/08/24 22:00 Ondansetron HCl 4 mg Q4HP PRN IV 09/08/24 22:30 09/09/24 20:49 4 MG Acetaminophen 650 mg Q6HP PRN PO 09/08/24 22:30 09/09/24 11:09 650 MG Hydralazine HCl 10 mg Q6HP PRN IV 09/08/24 23:45 09/09/24 22:40 10 MG Atorvastatin Calcium 20 mg HS PO 09/09/24 22:00 09/09/24 20:50 20 MG Apixaban 2.5 mg BID PO 09/09/24 22:00 09/10/24 11:49 2.5 MG Nifedipine 60 mg DAILY PO 09/10/24 10:00 09/10/24 12:40 60 MG Examination: GENERAL:Normal, LUNGS:Normal, CVS:Normal, NEURO:Normal laboratory and microbiology Laboratory Tests 09/10/24 05:18 09/08/24 18:07 Test 09/10/24 05:18 Range/Units Serum Glucose 72 L 74-106 mg/dL Problem List/Assessment/Plan Problem List/Assessment/Plan Asymptomatic bradycardia Severe aortic stenosis status post bioprosthetic aortic valve replacement Paroxysmal atrial fibrillation (on Eliquis and amiodarone) Mitral valve stenosis, moderate to severe degree Tricuspid valve regurgitation, mild to moderate degree Hypertension Hyperlipidemia Thyroid disease Hepatitis-C Plan/Recommendation (Dr. Barajas): * Echocardiogram reveals EF 55%, RVSP 51 mmHg * Avoid AV nicholas blocking agents * Switch amlodipine to nifedipine for tighter BP control * Up-titrate as tolerated * [id number] VASc score: 3 points, HAS-BLED score: 2 points * Hold beta theresa given bradycardia * NOAC therapy, Eliquis * Hold amiodarone given bradycardia * Cardiac surveillance: Notify cardiology team for any arrhythmias, pauses, or AV blocks * Consider outpatient event monitor Patient seen and examined at bedside with . Patient with asymptomatic bradycardia. No significant AV blocks or pauses seen on shelter monitor. Thank you for allowing us to care for this patient. Please call with any questions or concerns. This medical document was created using an electronic medical record system with voice recognition software and computerized dictation system. Although this document has been carefully reviewed, there might still be some phonetic and typographical errors. Occasional wrong-word or ``sound-alike substitutions may have occurred due to the inherent limitations of voice recognition software. These areas are purely typographical due to imperfections of the software programs and do not reflect any compromise in the patient's medical care. Please read the chart carefully and recognize, using context, where these substitutions have occurred Plan discussed with: Patient Date of Service: Sep 10, 2024 Billing Provider: LITTLE BARAJAS MD Common Visit Codes: [id number] INP/OBS CARE(HIGH) ARIANNA SY [facility] Sep 10, 2024 15:12
--- NOTE | 2024-09-10 16:51 | DVHPN2 ---
Progress Note - Dictate Date Seen: Sep 10, 2024 Medical Necessity Reason Pt with a Central, PICC or Fol: No Subjective . vital signs Vital Sign Date Time Temp Pulse Resp B/P (MAP) Pulse Ox O2 Delivery O2 Flow Rate FiO2 09/10/24 16:41 98.0 47 18 147/59 (88) 98 98.0 09/10/24 07:45 Room Air* 0 21 Total Intake and Output 09/09/24 09/09/24 09/10/24 15:00 23:00 07:00 Intake Total 1540 ml 720 ml Output Total 0 ml Balance 1540 ml 720 ml medications Current Medications Medications Dose Ordered Sig/Cornelio Route Start Time Stop Time Status Last Admin Dose Admin Nitroglycerin 0.4 mg Q5MINP PRN SL 09/08/24 22:00 Ondansetron HCl 4 mg Q4HP PRN IV 09/08/24 22:30 09/10/24 16:21 4 MG Acetaminophen 650 mg Q6HP PRN PO 09/08/24 22:30 09/09/24 11:09 650 MG Hydralazine HCl 10 mg Q6HP PRN IV 09/08/24 23:45 09/09/24 22:40 10 MG Atorvastatin Calcium 20 mg HS PO 09/09/24 22:00 09/09/24 20:50 20 MG Apixaban 2.5 mg BID PO 09/09/24 22:00 09/10/24 11:49 2.5 MG Nifedipine 60 mg DAILY PO 09/10/24 10:00 09/10/24 12:40 60 MG objective Awake alert oriented x3 HEENT: Normocephalic, no JVD Lungs: Bilateral good air entry CVS: S1, S2 bradycardic Abdomen: Soft, bowel sounds present 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 Amiodarone and beta-theresa on hold. Heart rate being monitored closely. Plan discussed with: Patient SHAYY LIN MD Sep 10, 2024 16:51
[2024-09-10] MEDS: SODIUM CHL 0.9% 1000 ML BAG XX ONE (20:48)
[2024-09-11] VITALS (7 sets, daily range): BP systolic 110–145; BP diastolic 56–67; PULSE 51–57; RESP 16–18; TEMP 36.8; O2SAT 97–100
--- NOTE | 2024-09-11 08:03 | DVHPN2 ---
Progress Note - Dictate Date Seen: Sep 11, 2024 Medical Necessity Reason Pt with a Central, PICC or Fol: No Subjective No acute issues overnight. Continues to be bradycardic. vital signs Vital Sign Date Time Temp Pulse Resp B/P (MAP) Pulse Ox O2 Delivery O2 Flow Rate FiO2 09/11/24 05:56 98.4 53 18 125/60 (81) 99 98.4 09/10/24 20:00 Room Air* 0 21 Total Intake and Output 09/10/24 09/10/24 09/11/24 15:00 23:00 07:00 Intake Total 105 ml 1029 ml 200 ml Output Total 3 ml Balance 105 ml 1026 ml 200 ml medications Current Medications Medications Dose Ordered Sig/Cornelio Route Start Time Stop Time Status Last Admin Dose Admin Nitroglycerin 0.4 mg Q5MINP PRN SL 09/08/24 22:00 Ondansetron HCl 4 mg Q4HP PRN IV 09/08/24 22:30 09/10/24 16:21 4 MG Acetaminophen 650 mg Q6HP PRN PO 09/08/24 22:30 09/09/24 11:09 650 MG Hydralazine HCl 10 mg Q6HP PRN IV 09/08/24 23:45 09/10/24 21:26 10 MG Atorvastatin Calcium 20 mg HS PO 09/09/24 22:00 09/10/24 21:02 20 MG Apixaban 2.5 mg BID PO 09/09/24 22:00 09/10/24 21:03 2.5 MG Nifedipine 60 mg DAILY PO 09/10/24 10:00 09/10/24 12:40 60 MG objective Awake alert oriented x3 HEENT: Normocephalic, no JVD Lungs: Bilateral good air entry CVS: S1, S2 bradycardic Abdomen: Soft, bowel sounds present [employer]: No focal deficits Extremities: No edema laboratory and microbiology Laboratory Tests 09/10/24 05:18 09/08/24 18:07 Test 09/10/24 05:18 Range/Units Serum Glucose 72 L 74-106 mg/dL Problem List End-stage kidney disease on hemodialysis Symptomatic bradycardia History of coronary artery disease status post CABG hypertension Hyperphosphatemia Assessment/Plan Hemodialysis on Friday schedule. Amiodarone on hold. Blood pressure better controlled with nifedipine. further plan as per cardiology Plan discussed with: Patient SHAYY LIN MD Sep 11, 2024 08:03
--- NOTE | 2024-09-11 13:31 | DVHPN2 ---
Consult Progress Note Subjective Patient reports: No new complaints Objective vital signs Vital Sign Date Time Temp Pulse Resp B/P (MAP) Pulse Ox O2 Delivery O2 Flow Rate FiO2 09/11/24 13:00 98.3 51 16 128/56 (80) 99 98.3 09/10/24 20:00 Room Air* 0 21 Total Intake and Output 09/10/24 09/10/24 09/11/24 15:00 23:00 07:00 Intake Total 105 ml 1029 ml 200 ml Output Total 3 ml Balance 105 ml 1026 ml 200 ml medications Current Medications Medications Dose Ordered Sig/Cornelio Route Start Time Stop Time Status Last Admin Dose Admin Nitroglycerin 0.4 mg Q5MINP PRN SL 09/08/24 22:00 Ondansetron HCl 4 mg Q4HP PRN IV 09/08/24 22:30 09/10/24 16:21 4 MG Acetaminophen 650 mg Q6HP PRN PO 09/08/24 22:30 09/09/24 11:09 650 MG Hydralazine HCl 10 mg Q6HP PRN IV 09/08/24 23:45 09/10/24 21:26 10 MG Atorvastatin Calcium 20 mg HS PO 09/09/24 22:00 09/10/24 21:02 20 MG Apixaban 2.5 mg BID PO 09/09/24 22:00 09/11/24 09:09 2.5 MG Nifedipine 60 mg DAILY PO 09/10/24 10:00 09/11/24 09:09 60 MG Lorazepam 0.5 mg Q12HP PRN PO 09/11/24 12:45 Examination: CVS:Abnormal (Telemetry consistent with sinus bradycardia 55 beats per minute. Asymptomatic. Good current drug or response with ambulation.) laboratory and microbiology Laboratory Tests 09/10/24 05:18 09/08/24 18:07 Test 09/10/24 05:18 Range/Units Serum Glucose 72 L 74-106 mg/dL Problem List/Assessment/Plan Problem List/Assessment/Plan Problem List/Assessment/Plan Asymptomatic bradycardia Severe aortic stenosis status post bioprosthetic aortic valve replacement Paroxysmal atrial fibrillation (on Eliquis and amiodarone) Mitral valve stenosis, moderate to severe degree Tricuspid valve regurgitation, mild to moderate degree Hypertension Hyperlipidemia Thyroid disease Hepatitis-C Plan/Recommendation (Dr. Richards): * Echocardiogram reveals EF 55%, RVSP 51 mmHg * Avoid AV nicholas blocking agents * Switch amlodipine to nifedipine for tighter BP control * Up-titrate as tolerated * [id number] VASc score: 3 points, HAS-BLED score: 2 points * Hold beta theresa given bradycardia * NOAC therapy, Eliquis * Hold amiodarone given bradycardia * Cardiac surveillance: Notify cardiology team for any arrhythmias, pauses, or AV blocks * Consider outpatient event monitor * Positive chronotropic response with ambulation. Patient seen and examined at bedside. Patient with asymptomatic bradycardia. No significant AV blocks or pauses seen on transportation attendant. Recommend outpatient event monitoring with [facility]. Continue hold metoprolol and amiodarone at this time. Thank you for allowing us to care for this patient. BP stable. No further cardiac workup needed at this time Please call with any questions or concerns. Patient is stable from Cardiology standpoint. Will sign off. This medical document was created using an electronic medical record system with voice recognition software and computerized dictation system. Although this document has been carefully reviewed, there might still be some phonetic and typographical errors. Occasional wrong-word or ``sound-alike substitutions may have occurred due to the inherent limitations of voice recognition software. These areas are purely typographical due to imperfections of the software programs and do not reflect any compromise in the patient's medical care. Please read the chart carefully and recognize, using context, where these substitutions have occurred Plan discussed with: Patient Date of Service: Sep 11, 2024 Billing Provider: LITTLE RICHARDS MD Common Visit Codes: [id number] INP/OBS CARE(HIGH) EDD CALZADA [facility] Sep 11, 2024 13:31
--- NOTE | 2024-09-11 14:03 | DVHDS2 ---
Discharge Summary Date of Admission Sep 08, 2024 at 21:49 Date of Discharge: Sep 11, 2024 Admitting Diagnosis Bradycardia and generalized weakness Labs/Diagnostic Data: Laboratory Results Test 09/10/24 05:18 09/08/24 18:29 09/08/24 18:07 Sodium Level 138 mmol/L (136-145) Potassium Level 4.2 mmol/L (3.5-5.1) Chloride Level 93 mmol/L (98-107) Carbon Dioxide Level 32 mmol/L (20-31) Anion Gap 13 (5-15) Blood Urea Nitrogen 38 mg/dL (9-23) Creatinine 9.03 mg/dL (0.550-1.02) Glomerular Filtration Rate Calc 4 mL/min (>90) BUN/Creatinine Ratio 4.2 (10.0-20.0) Serum Glucose 72 mg/dL (74-106) Hemoglobin A1c 4.9 % A1C (<5.7) Calcium Level 8.7 mg/dL (8.7-10.4) Triglycerides Level 90 mg/dL (< 150) Cholesterol Level 141 mg/dL (< 200) LDL Cholesterol 78 mg/dL (< 100) HDL Cholesterol 39 mg/dL (40-59) Magnesium Level 2.0 mg/dL (1.6-2.6) Total Bilirubin 0.5 mg/dL (0.2-1.0) Aspartate Amino Transferase (AST) 34 U/L (13-40) Alanine Aminotransferase (ALT) 32 U/L (7-40) Alkaline Phosphatase 144 U/L (46-116) Troponin I High Sensitivity 23 ng/L (</=34) Total Protein 8.3 g/dL (5.7-8.2) Albumin 4.4 g/dL (3.2-4.8) Thyroid Stimulating Hormone (TSH) 2.08 uIU/mL (0.55-4.78) White Blood Count 3.9 10^3/uL (4.4-10.8) Red Blood Count 4.36 10^6/uL (4.0-5.20) Hemoglobin 12.7 g/dL (12.2-16.2) Hematocrit 38.7 % (36.0-46.0) Mean Corpuscular Volume 88.8 fL (80.0-100.0) Mean Corpuscular Hemoglobin 29.2 pg (28.0-32.0) Mean Corpuscular Hemoglobin Concent 32.9 g/dL (32.0-36.0) Red Cell Distribution Width 18.0 % (11.8-14.3) Platelet Count 160 10^3/uL (140-450) Mean Platelet Volume 10.4 fL (6.9-10.8) Neutrophils (%) (Auto) 65.9 % (37.0-80.0) Lymphocytes (%) (Auto) 17.3 % (10.0-50.0) Monocytes (%) (Auto) 14.9 % (0.0-12.0) Eosinophils (%) (Auto) 0.9 % (0.0-7.0) Basophils (%) (Auto) 1.0 % (0.0-2.0) Neutrophils # (Auto) 2.6 10 ^3/uL (1.6-8.6) Lymphocytes # (Auto) 0.7 10 ^3/uL (0.4-5.4) Monocytes # (Auto) 0.6 10 ^3/uL (0-1.3) Eosinophils # (Auto) 0 10 ^3/uL (0-0.8) Basophils # (Auto) 0 10 ^3/uL (0-0.2) Nucleated Red Blood Cells 0.3 % Other Laboratory Tests 09/10/24 05:18 09/08/24 18:07 Brief Hx & Hospital Course: 64-year-old lady admitted to the hospital from the emergency room with bradycardia and generalized weakness. Patient has history of atrial fibrillation and end-stage renal disease. Cardiology and nephrology consultation obtained. cardiology recommended to stop amiodarone and beta- blockers. Heart rate went up from the 40s to mid 50s. Patient asymptomatic. Patient is being discharged home to follow up with Cardiology and with PCP and to stay off beta blockers and amiodarone. She will continue other home medications Consults/Reason for consult Cardiology and nephrology Condition at Discharge: Good Final Diagnosis/Problems List Sinus bradycardia Paroxysmal AFib Secondary Diagnosis: Hypertension History of aortic valve replacement with epic tissue valve [id number] mitral stenosis End-stage renal disease on hemodialysis History of gastric sleeve History of hepatitis-C Discharge Disposition: Home Discharge Instruct/Medications Diet: Regular Activity: Light activity Follow Up/Referral: PCP within one week Cardiology within one week Medications: Nifedipine XL 60 mg daily Apixaban 2.5 mg twice a day Atorvastatin 20 mg daily Stay off amiodarone and beta-blockers for now 40 Discharge Statement: "Patient was advised to return to the ER or call 911 if any headaches, dizziness, shortness of breath, chest pain, abdominal pain, bleeding, fevers, or worsening of medical condition. Patient was counseled about treatment plan, medications, possible side effects, patientverbalized understanding. All questions were answered to the best of my ability. This discharge took greater then 30 minutes in planning, reviewing documentation, counseling the patient, and discussing with other team members." ASSESSMENT ASSESSMENT Assessment Date of Service: Sep 11, 2024 Billing Provider: LAURA GIBBONS MD Common Visit Codes: [id number] DISCH DAY >30min LAURA GIBBONS MD Sep 11, 2024 14:03
[2024-09-11] MEDS ORDERED: NIFE1TAB31 PO (14:05)
[2024-09-11] MEDS: LORazepam 0.5 MG TAB PO PRN (14:56)
--- NOTE | 2024-09-11 15:39 | DVH ---
CHEST RADIOGRAPH Indication: weakness/jarek Technique: Single frontal view of the chest was obtained COMPARISON: None FINDINGS: Lines and Tubes: Median sternotomy Lungs: Mild congestion Pleura: No effusion. No pneumothorax. Cardiomediastinal contours: Cardiomegaly Bones: Unremarkable IMPRESSION: Cardiomegaly and mild pulmonary vascular congestion
== END 2024-09-11 16:55 | disposition home or self-care (01) | DRG 308 ==
LOC: ER 16:34 → TELE 21:49 → TELE-WESTW 21:50
PROVIDERS: ADMIT Nurse Practitioner; ATTEND Internal Medicine
PROC: 5A1D70Z Performance of Urinary Filtration, Intermittent, Less than 6 Hours Per Day (ICD-10-PCS; principal; 2024-09-10)
DX: I48.0 Paroxysmal atrial fibrillation (principal); N18.6 End stage renal disease; I12.0 Hypertensive chronic kidney disease with stage 5 chronic kidney disease or end stage renal disease; N25.81 Secondary hyperparathyroidism of renal origin; E07.9 Disorder of thyroid, unspecified; E78.5 Hyperlipidemia, unspecified; B19.20 Unspecified viral hepatitis C without hepatic coma; Z99.2 Dependence on renal dialysis; I08.3 Combined rheumatic disorders of mitral, aortic and tricuspid valves; R00.1 Bradycardia, unspecified; F41.9 Anxiety disorder, unspecified; I25.10 Atherosclerotic heart disease of native coronary artery without angina pectoris; E83.39 Other disorders of phosphorus metabolism; Z88.6 Allergy status to analgesic agent; Z88.5 Allergy status to narcotic agent; Z95.3 Presence of xenogenic heart valve; Z79.01 Long term (current) use of anticoagulants; Z95.1 Presence of aortocoronary bypass graft; Z98.84 Bariatric surgery status; Z90.710 Acquired absence of both cervix and uterus
CPT/HCPCS: 36415; 70450; 71045; 80048; 80053; 80061; 83036; 83735; 84443; 84484; 85025; 87081; 90935; 93005; 93306; 99291; G0378; J2405